=== PATIENT | female | born 1995 | race Two or more races ===

== ENCOUNTER 2021-07-12 00:16 | Emergency (ER) | payer OTHER ==
[~2021-07-12] VITALS: Ht 147.3 cm; Wt 60.0 kg
[2021-07-12 05:33] VITALS: BP 135/85
== END 2021-07-12 05:40 | disposition home or self-care (01) ==
LOC: EMS 00:22
DX: Z11.1 Encounter for screening for respiratory tuberculosis (principal)
CPT/HCPCS: 71045; 99283